=== PATIENT | male | born 1955 | race Caucasian/White ===

== ENCOUNTER → 2018-03-24 08:05 | Outpatient (CLI) | payer OTHER, SELFPAY ==
[2018-03-24 10:21] LABS: ALB/GLOB Ratio 1.2 RATIO (0.9-2.4); AST(SGOT) 40 U/L (15-37); Alanine Aminotransfer ALT/SGPT 57 U/L (16-61); Alkaline Phosphatase 63 U/L (45-117); Anion Gap 11 (5-15); BUN 18 mg/dL (7-18); BUN/Creat Ratio 19.8 RATIO (10-20); Calcium,Total 9.1 mg/dL (8.5-10.1); Chloride 107 mmol/L (98-107); Cholesterol 165 mg/dL (200); Creatinine, Serum 0.91 mg/dL (0.70-1.30); EST Glomerular Filtration Rate 89 mL/min (>60); Est Glom Filt Rate - Afr Amer 108 mL/min (>60); Globulin 3.3 g/dL (2.2-4.2); Glucose 86 mg/dL (74-106); High Density Lipoprotein 53 mg/dL; PSA,Total - Annual Screen 1.21 ng/mL (0.00-4.00); Potassium 4.3 mmol/L (3.5-5.1); Protein, Total 7.3 g/dL (6.4-8.2); Sodium Level 144 mmol/L (136-145); Triglycerides 86 mg/dL; Very Low Density Lipoprotein 17 mg/dL (5-40)
--- OUTSIDE RECORDS SUMMARY | 2018-06-25 12:53 | XMS RPT_ITS ---
:1955 Author Organization OHIP Care Team Providers Name Role Phone Blue Hopson Attending Unavailable Blue Hopson Primary Care Unavailable PROBLEMS PROBLEMS No Problem Records FoundPROCEDURES PROCEDURES No Procedure Records FoundRESULTS RESULTS COMPREHENSIVE METABOLIC Collected: 03/24/2018 Status: F Source: [facility] 8:07 AM [facility] REPOSITORY Order Comment: Order Date: 03/24/17 Order Info: [id number] - CMP Order Info: [id number] - LIPID Order Info: 2857-1 - PSA TYPE CODE TESTS RESULT OUT OF RANGE REFERENCE UNITS LAB L501.0100 74-106 mg/dL Normal GLU 86 Result Comment: Please note revised GLUCOSE reference range effective 2017. LAB L501.1000 7-18 mg/dL Normal BUN 18 LAB L501.1100 0.70-1.30 mg/dL Normal CREAT,SERUM 0.91 Result Comment: The validity of the calculated GFR AND GFRAA in patients over 70 years has not been determined. Clinical correlation is essential. LAB L501.1110 >60 mL/min Normal EST GFR 89 Result Comment: Non- GFR Calc LAB L501.1115 >60 mL/min Normal EST GFR - AA 108 Result Comment: GFR Calc LAB L501.1300 10-20 RATIO Normal BUN/CRE 19.8 LAB L501.1500 6.4-8.2 g/dL T Normal PROT 7.3 LAB L501.1800 3.2-5.0 g/dL Normal ALB 4.0 LAB L501.1950 2.2-4.2 g/dL Normal GLOB 3.3 LAB L501.2000 0.9-2.4 RATIO Normal A/G 1.2 LAB L501.2200 8.5-10.1 mg/dL CA Normal 9.1 LAB L501.4100 15-37 U/L High AST 40 LAB L501.4305 45-117 U/L Normal ALK P 63 LAB L501.4405 16-61 U/L Normal ALT 57 LAB L501.4600 0.20-1.00 mg/dL T Normal BILI 0.70 LAB L501.5300 136-145 mmol/L NA Normal 144 LAB L501.5600 3.5-5.1 mmol/L K Normal 4.3 LAB L501.5900 98-107 mmol/L CL Normal 107 LAB L501.6100 21.0-32.0 mmol/L Normal CO2 26.0 LAB L501.6200 5-15 Normal GAP 11 Performed By: #### L500.4050, L500.4100, L501.9910 #### [facility] [address] [place], [address] LIPID PROFILE Collected: 03/24/2018 Status: F Source: [facility] 8:07 AM [facility] REPOSITORY Order Comment: Order Date: 03/24/17 Order Info: [id number] - CMP Order Info: [id number] - LIPID Order Info: 2857-1 - PSA TYPE CODE TESTS RESULT OUT OF RANGE REFERENCE UNITS LAB L501.4900 200 mg/dL Normal CHOL 165 Result Comment: <200 mg/dL Desirable 200-240 mg/dL Borderline >240 mg/dL High Risk LAB L501.5000 mg/dL Normal TRIG 86 Result Comment: The drugs N-Acetylcysteine and Metamizole may falsely depress this assay. Serum Triglycerides Reference Interval Normal <150 mg/dL Borderline high 150 - 199 mg/dL High 200 - 499 mg/dL Very High > or = 500 mg/dL LAB L501.6400 mg/dL Normal HDL 53 Result Comment: The drugs N-Acetylcysteine and Metamizole may falsely depress this assay. Reference Range HDL <40 mg/dL Low HDL Cholesterol HDL >or= 60 mg/dL High HDL Cholesterol LAB L501.6500 0-130 mg/dL Normal LDL 95 LAB L501.6600 5-40 mg/dL Normal VLDL 17 Performed By: #### L500.4050, L500.4100, L501.9910 #### [facility] [address] [place], [address] PSA,TOTAL - ANNUAL Collected: 03/24/2018 Status: F Source: [facility] 8:07 AM [facility] REPOSITORY Order Comment: Order Date: 03/24/17 Order Info: [id number] - CMP Order Info: [id number] - LIPID Order Info: [id number] - PSA TYPE CODE TESTS RESULT OUT OF RANGE REFERENCE UNITS LAB L501.9910 0.00-4.00 ng/mL Normal PSA,TOT 1.21 SCREEN Result Comment: This test was performed using the TPSA assay method for the [employer] chemistry system. Values obtained with different assay methods cannot be used interchangably. When changing PSA assays in the course of monitoring a patient, additional sequential testing should be carried out to confirm baseline values. Performed By: #### L500.4050, L500.4100, L501.9910 #### [facility] [address] [place], [address] ALLERGIES ALLERGIES No Allergies Records FoundENCOUNTERS ENCOUNTERS ADMIT/DISCHARGE ACCOUNT ADMITTING ENCOUNTER LOCATION SOURCE NUMBER CLASS 03/24/2018 [id number] Ambulatory [address] ing:MFPLAB Repository PAYERS PAYERS ENCOUNTER GUARANTOR PAYER SUBSCRIBER SOURCE 03/24/2018 Evon Cummings Primary EVON Cummings Carmen [id number] Insurance:[facility] GLENNYESSERDOB: [facility] [place]: [id number] [id number] Repository [address]ym: [phone]) Date:[phone] () [id number] [place], [place] [address]QD: 03/24/2018 Secondary NOT GIVENELIAN Carmen Insurance:SELF PAY [facility] Number: Effective Repository Date:2018-03-24
== END ==
PROVIDERS: Family Provider Family Medicine; PCP Family Medicine; Visit Provider Family Medicine
DX: E78.5 Hyperlipidemia, unspecified (principal); Z12.5 Encounter for screening for malignant neoplasm of prostate
CPT/HCPCS: 36415; 80053; 80061; 84153; G0103

== ENCOUNTER → 2019-03-10 09:08 | Outpatient (CLI) | payer MEDICARE, SELFPAY ==
[2019-03-10 09:21] LABS: Lyme Ab Screen Interpretation REF LAB
[2019-03-15 20:18] LABS: Lyme Scn Total Ab w/Rflx 2.17 ISR (0.00-0.90)
[2019-03-16 10:46] LABS: Lyme IgG P18 Ab Absent (.); Lyme IgG P23 Ab Absent (.); Lyme IgG P28 Ab Absent (.); Lyme IgG P30 Ab Absent (.); Lyme IgG P39 Ab Absent (.); Lyme IgG P41 Ab Present (.); Lyme IgG P45 Ab Absent (.); Lyme IgG P58 Ab Absent (.); Lyme IgG P66 Ab Absent (.); Lyme IgG P93 Ab Absent (.); Lyme IgM P23 Ab Present (.); Lyme IgM P39 Ab Present (.); Lyme IgM P41 Ab Present (.)
[2019-03-16 10:51] LABS: Lyme IgG WB Interpretation Negative (.)
[2019-03-16 10:55] LABS: Lyme IgM WB Interpretation Positive (.)
== END ==
PROVIDERS: Family Provider Family Medicine; PCP Family Medicine; Referring Provider Dermatology; Visit Provider Dermatology
DX: A69.20 Lyme disease, unspecified (principal)
CPT/HCPCS: 36415; 86617; 86618

== ENCOUNTER → 2019-03-24 08:16 | Outpatient (CLI) | payer MEDICARE, SELFPAY ==
[2019-03-24 11:00] LABS: AST(SGOT) 47 U/L (15-37); Alanine Aminotransfer ALT/SGPT 81 U/L (16-61); Albumin, Serum 3.8 g/dL (3.2-5.0); Alkaline Phosphatase 63 U/L (45-117); Anion Gap 7 (5-15); BUN 15 mg/dL (7-18); BUN/Creat Ratio 16.8 RATIO (10-20); Chloride 106 mmol/L (98-107); Cholesterol 167 mg/dL (200); EST Glomerular Filtration Rate 90 mL/min (>60); Est Glom Filt Rate - Afr Amer 109 mL/min (>60); Globulin 3.7 g/dL (2.2-4.2); Glucose 94 mg/dL (74-106); High Density Lipoprotein 52 mg/dL; PSA,Total - Annual Screen 0.86 ng/mL (0.00-4.00); Potassium 3.8 mmol/L (3.5-5.1); Protein, Total 7.5 g/dL (6.4-8.2); Sodium Level 141 mmol/L (136-145); Triglycerides 108 mg/dL; Very Low Density Lipoprotein 22 mg/dL (5-40)
== END ==
PROVIDERS: Family Provider Family Medicine; PCP Family Medicine; Referring Provider Family Medicine; Visit Provider Family Medicine
DX: E78.00 Pure hypercholesterolemia, unspecified (principal); I10 Essential (primary) hypertension; Z12.5 Encounter for screening for malignant neoplasm of prostate
CPT/HCPCS: 36415; 80053; 80061; 84153; G0103

== ENCOUNTER → 2019-04-12 09:14 | Outpatient (CLI) | payer MEDICARE, SELFPAY ==
--- NOTE | 2019-04-12 09:18 | US_ITS ---
PROCEDURES: ULTRASOUND AORTA REASON FOR EXAM: Male, 63 years old. AAA SCREENING TECHNIQUE: Ultrasound evaluation of the aorta was performed with real-time and static james-scale imaging. COMPARISON: None. FINDINGS: There is atherosclerotic plaque formation of the abdominal aorta. Aorta measures: Proximal 2.0 cm. Middle 1.8 cm. Distal 1.6 cm. Aorta measure transversely: Proximal 2.0 cm. Middle 1.4 cm. Distal 2.0 cm. Right iliac artery measures: 1.0 cm. Right iliac artery measure transversely: 1.2 cm. Left iliac artery measures: 1.0 cm. Left iliac artery measure transversely: 1.2 cm. There is no demonstrated aneurysm.. US/Aorta IMPRESSION: Atherosclerotic disease of aorta with no aneurysmal dilatation or significant stenosis. Electronically Signed: Lyly Cardona MD at 1:52 EST , Service support ,
== END ==
PROVIDERS: Family Provider Family Medicine; PCP Family Medicine; Referring Provider Family Medicine; Visit Provider Family Medicine
DX: Z13.6 Encounter for screening for cardiovascular disorders (principal)
CPT/HCPCS: 76775

== ENCOUNTER → 2020-02-02 07:47 | Outpatient (CLI) | payer MEDICARE, SELFPAY ==
--- NOTE | 2020-02-02 07:52 | CT_ITS ---
STUDY: CT SCAN OF LOWER EXTREMITY LEFT REASON FOR EXAM: Male, 64 years old. Left knee varus deformity-CRISTIAN PROTOCOL RADIATION DOSAGE (If Supplied By Facility): CTDIvol = ( 18.14 ) mGy, DLP = ( 1445.60 ) mGycm. Individualized dose optimization techniques were used for this CT.? TECHNIQUE: Multiple axial tomographic images of the left hip joint, left knee joint and left ankle joints were obtained. Coronal and sagittal reconstruction was obtained as well. COMPARISON: None. FINDINGS: The left hip joint shows a mild degree of joint space narrowing. No evidence of fracture or dislocation. There is a marked degree of joint space narrowing involving the medial compartment of the knee joint. There is evidence of a virus deformity as well as a tiny spur along the lateral and anterior aspect of the distal medial femoral condyle. Minimal degenerative changes of the patellofemoral joint. Small joint effusion. Imaging of the ankle joints shows a mild degree of the degenerative changes of the tibial talar joint as well as the distal tibial fibular joint. CT/Extremity Lower without Contra IMPRESSION: Moderate degree of both osteoarthritis and joint space narrowing involving the medial compartment of the knee joint. Small joint effusion. Electronically Signed: Carlos Kincaid, at 15:30 EDT , Service support ,
== END ==
PROVIDERS: PCP Family Medicine; Referring Provider Orthopaedic Surgery; Visit Provider Orthopaedic Surgery
DX: M17.12 Unilateral primary osteoarthritis, left knee (principal)
CPT/HCPCS: 73700

== ENCOUNTER 2020-02-21 05:25 | Day surgery (SDC) | payer MEDICARE, SELFPAY ==
--- NOTE | 2020-02-14 08:51 | EKG12_ITS ---
Test Reason : PREOP Blood Pressure : / mmHG Vent. Rate : 082 BPM Atrial Rate : 082 BPM P-R Int : 168 ms QRS Dur : 100 ms QT Int : 364 ms P-R-T Axes : 060 -27 041 degrees QTc Int : 425 ms Normal sinus rhythm Septal infarct , age undetermined Abnormal ECG Confirmed by MUSHTAQ CARTAGENA, SAI ([id number]), content editor BEEVRLY MCRAE ([id number]) on 02/15/2020 10:56:40 AM Referred By: Basilio Michael Confirmed By:SAI LANDIN MD
[2020-02-14 09:36] LABS: Magnesium 2.1 mg/dL (1.6-2.6)
[2020-02-21] VITALS (9 sets, daily range): BP systolic 90–173; BP diastolic 39–96; PULSE 59–75; RESP 14–16; TEMP 36.3–37.1; O2SAT 97–100; BMI 27.7
--- NOTE | 2020-02-21 | KNEE_PTH ---
PATIENT: EVON ROTHMAN LOC: [facility] [place] U#:[id number] AGE/SX: 64/M ROOM: RE02/21/[address]: Dr. Basilio Michael DO : 1955 BED: DIS: 02/21/2020 SPEC #: [id number] RECD: 02/21/20 10:37 STATUS: MIRIAM REQ #: [id number] SO: 02/21/20 00:[address]: Basilio Michael DEPT: SURGICAL PATHOLOGY RECD BY: Karena Burroughs ENTERED: 02/21/20 11:46 SP TYPE: TOTAL KNEE OTHR DR: Dr. Blue Hopson MD Tissues: Knee, NOS Procedures: Decalcification bone/plaque Surgery Specimen Level IV HEADER OPERATION: ERAS, total knee replacement robotic arm assist PRE-OP DIAGNOSIS: Left knee osteoarthritis TISSUE SUBMITTED: Left knee bone and soft tissue MICROSCOPIC DIAGNOSIS Bone and soft tissue of left knee, total knee resection: Severe degenerative joint disease. AM:madeleine 02/24/20 MICROSCOPIC DESCRIPTION Slides are reviewed. GROSS DESCRIPTION Received is one container designated bone and soft tissue left knee. The specimen consists of multiple fragments of victoria-yellow bone measuring in aggregate 13 x 11 x 3 cm. No soft tissue is identified. A number of bony fragments contain articular surfaces consistent with tibial plateau and femoral condyle and displaying prominent osteophyte formation, eburnation, and bone erosion. Scientific Software Engineer sections are submitted in one cassette after decalcification. / SJ:madeleine 02/21/20 TC:5 CPT: 29964, 95498
[2020-02-21] MEDS: Acetaminophen 500 MG Tablet 1000 MG PO (06:05)
[2020-02-21] MEDS: Gabapentin 600 MG Tablet PO (06:06)
[2020-02-21] MEDS: Lactated Ringers 1,000 ML 100 ML IV (06:08)
[2020-02-21 06:36] LABS: Bedside Glucose 101 mg/dL (70-110)
[2020-02-21] MEDS: Cefazolin 2 GM in 0.9% Normal Saline 100 ML IV (07:25)
[2020-02-21] MEDS: Lactated Ringers 1,000 ML 125 ML IV ×2 (08:30→09:21)
--- NOTE | 2020-02-21 09:43 | OP.PCM_ITS ---
Report of Operation Date of Procedure: 02/21/20 Pre-Operative Diagnosis: OA left knee Post-Operative Diagnosis: same Surgery/Procedure Performed:: Left TKR coin machine supervisor: Ernie Styles Type of Anesthesia:: Spinal Anesthesiologist: Deng Page - Admjanak VTE Documentation VTE Present on Admission: No VTE Mechan Device Prophylaxis: SCD's, Thigh High YESICA Hose VTE Pharm Prophylaxis ordered?: Yes
--- NOTE | 2020-02-21 09:44 | RAD_ITS ---
STUDY: X-RAY - LEFT KNEE REASON FOR EXAM: Male, 64 years old. POST OP TOTAL KNEE TECHNIQUE: 2 view(s) of the knee. COMPARISON: None. FINDINGS: Normal visualized distal femur. Normal visualized proximal tibia and fibula. Normal proximal tibiofibular articulation. The patient is status post total knee replacement. There is good alignment. Postoperative soft tissue changes. RAD/Knee 1 or 2 Views IMPRESSION: Status post total knee replacement. There is good alignment. Postoperative soft tissue changes. Electronically Signed: Carlos Kincaid, at 10:15 EST , Service support ,
[2020-02-21 10:23] LABS: Hematocrit 41.8 % (40-54); Hemoglobin 13.5 g/dL (13.0-16.5); Mean Corp Hgb Conc 32.3 g/dL (32-36); Mean Corpuscular Hgb 33.3 pg (27.0-32.0); Platelet Count 253 K/mm3 (150-450); RBC Distribution Width CV 12.4 % (11.6-14.6); RBC Distribution Width SD 47.6 fl (35.1-43.9); Red Blood Count 4.06 M/mm3 (4.6-6.2); White Blood Count 6.5 K/mm3 (4.4-11.0)
[2020-02-21 10:37] LABS: Anion Gap 6 (5-15); BUN 17 mg/dL (7-18); BUN/Creat Ratio 19.7 RATIO (10-20); Calcium,Total 8.4 mg/dL (8.5-10.1); Chloride 107 mmol/L (98-107); Creatinine, Serum 0.86 mg/dL (0.70-1.30); EST Glomerular Filtration Rate 94 mL/min (>60); Est Glom Filt Rate - Afr Amer 114 mL/min (>60); Estimated Creatinine Clearance 98.24 ml/min; Glucose 109 mg/dL (74-106); Potassium 4.1 mmol/L (3.5-5.1); Sodium Level 140 mmol/L (136-145)
[2020-02-21] MEDS: Cefazolin 1 GM/50 ML BAG IV (12:17)
== END 2020-02-21 13:33 | disposition home or self-care (01) ==
LOC: SDC 05:26 → AC 05:26
PROVIDERS: Anesthesiology; PCP Family Medicine; Referring Provider Orthopaedic Surgery; Visit Provider Orthopaedic Surgery
PROC: 0SRD0JZ Replacement of Left Knee Joint with Synthetic Substitute, Open Approach (ICD-10-PCS; CPT 27447; principal; 2020-02-21 07:00)
DX: M17.12 Unilateral primary osteoarthritis, left knee (principal); I10 Essential (primary) hypertension; E78.00 Pure hypercholesterolemia, unspecified; Z85.828 Personal history of other malignant neoplasm of skin; Z79.899 Other long term (current) drug therapy; Z87.891 Personal history of nicotine dependence
CPT/HCPCS: 01402; 27447; S2900; 36415; 73560; 80048; 82962; 83735; 85027; 87081; 87426; 88305; 88311; 93005; 97161; C1776; C9803; J7120; A4216; J2405

== ENCOUNTER → 2020-03-29 07:57 | Outpatient (CLI) | payer MEDICARE, SELFPAY ==
[2020-02-21 06:00] VITALS: BMI 27.7
[2020-03-29 10:45] LABS: Hematocrit 43.2 % (40-54); Mean Corp Hgb Conc 32.4 g/dL (32-36); Mean Corpuscular Hgb 32.3 pg (27.0-32.0); Mean Corpuscular Volume 99.8 fL (80-94); Mean Platelet Vol. 9.8 fl (6.2-12.0); Platelet Count 320 K/mm3 (150-450); RBC Distribution Width CV 12.4 % (11.6-14.6); RBC Distribution Width SD 45.9 fl (35.1-43.9); Red Blood Count 4.33 M/mm3 (4.6-6.2); White Blood Count 5.1 K/mm3 (4.4-11.0)
[2020-03-29 11:14] LABS: ALB/GLOB Ratio 0.9 RATIO (0.9-2.4); AST(SGOT) 25 U/L (15-37); Alanine Aminotransfer ALT/SGPT 52 U/L (16-61); Albumin, Serum 3.7 g/dL (3.2-5.0); Alkaline Phosphatase 90 U/L (45-117); Anion Gap 7 (5-15); BUN 17 mg/dL (7-18); BUN/Creat Ratio 19.1 RATIO (10-20); Calcium,Total 9.2 mg/dL (8.5-10.1); Chloride 106 mmol/L (98-107); Cholesterol 165 mg/dL (200); Creatinine, Serum 0.89 mg/dL (0.70-1.30); EST Glomerular Filtration Rate 91 mL/min (>60); Est Glom Filt Rate - Afr Amer 110 mL/min (>60); Glucose 86 mg/dL (74-106); High Density Lipoprotein 52 mg/dL; PSA,Total - Annual Screen 1.22 ng/mL (0.00-4.00); Potassium 3.8 mmol/L (3.5-5.1); Protein, Total 7.7 g/dL (6.4-8.2); Sodium Level 140 mmol/L (136-145); Triglycerides 89 mg/dL; Very Low Density Lipoprotein 18 mg/dL (5-40)
== END ==
PROVIDERS: PCP Family Medicine; Referring Provider Family Medicine; Visit Provider Family Medicine
DX: Z00.00 Encounter for general adult medical examination without abnormal findings (principal); E78.00 Pure hypercholesterolemia, unspecified; Z12.5 Encounter for screening for malignant neoplasm of prostate
CPT/HCPCS: 36415; 80053; 80061; 84153; 85027; G0103

== ENCOUNTER → 2021-04-03 08:11 | Outpatient (CLI) | payer MEDICARE, SELFPAY ==
[2021-04-03 09:46] LABS: Absolute Lymphocyte Count 1.52 X10^3/uL (0.83-4.51); Absolute Neutrophil Count 2.8 X10^3/uL (2.0-7.7); Basophil# 0.02 X10^3/uL; Basophil% 0.4 % (0-1); Eosinophil# 0.07 X10^3/uL; Eosinophils% 1.4 % (0-5); Hematocrit 45.3 % (40-54); Hemoglobin 15.6 g/dL (13.0-16.5); Lymphocyte # 1.52 X10^3/ul (0.83-4.51); Lymphocyte % 30.2 % (19-41); Mean Corp Hgb Conc 34.4 g/dL (32-36); Mean Corpuscular Hgb 33.1 pg (27.0-32.0); Mean Corpuscular Volume 96.2 fL (80-94); Mean Platelet Vol. 9.9 fl (6.2-12.0); Monocyte# 0.59 X10^3/uL; Monocyte% 11.7 % (0-10); NRBC Flagged by Analyzer 0 % (0-5); Neutrophil # 2.82 X10^3/uL (2.7-7.7); Neutrophil % 56.1 % (47-70); Platelet Count 276 K/mm3 (150-450); RBC Distribution Width SD 42.4 fl (35.1-43.9); Red Blood Count 4.71 M/mm3 (4.6-6.2)
[2021-04-03 10:21] LABS: AST(SGOT) 33 U/L (15-37); Alanine Aminotransfer ALT/SGPT 58 U/L (16-61); Albumin, Serum 3.9 g/dL (3.2-5.0); Alkaline Phosphatase 73 U/L (45-117); Anion Gap 9 (5-15); BUN 19 mg/dL (7-18); BUN/Creat Ratio 21.9 RATIO (10-20); Calcium,Total 9.4 mg/dL (8.5-10.1); Chloride 104 mmol/L (98-107); Cholesterol 163 mg/dL (200); Creatinine, Serum 0.87 mg/dL (0.70-1.30); EST Glomerular Filtration Rate 93 mL/min (>60); Est Glom Filt Rate - Afr Amer 113 mL/min (>60); Globulin 3.9 g/dL (2.2-4.2); Glucose 93 mg/dL (74-106); High Density Lipoprotein 53 mg/dL; PSA,Total - Annual Screen 1.03 ng/mL (0.00-4.00); Potassium 3.7 mmol/L (3.5-5.1); Protein, Total 7.8 g/dL (6.4-8.2); Sodium Level 138 mmol/L (136-145); Triglycerides 97 mg/dL; Very Low Density Lipoprotein 19 mg/dL (5-40)
== END ==
LOC: MFPLAB 08:12
PROVIDERS: PCP Family Medicine; Visit Provider Family Medicine
DX: I10 Essential (primary) hypertension (principal); Z12.5 Encounter for screening for malignant neoplasm of prostate
CPT/HCPCS: 36415; 80053; 80061; 84153; 85025; G0103

== ENCOUNTER 2022-03-06 08:09 | Outpatient (CLI) | payer MEDICARE, SELFPAY ==
[2022-03-06 10:21] LABS: Absolute Lymphocyte Count 1.26 X10^3/uL (0.83-4.51); Absolute Neutrophil Count 3.3 X10^3/uL (2.0-7.7); Basophil# 0.02 X10^3/uL; Basophil% 0.4 % (0-1); Eosinophil# 0.08 X10^3/uL; Eosinophils% 1.5 % (0-5); Hematocrit 45.6 % (40-54); Hemoglobin 15.3 g/dL (13.0-16.5); Lymphocyte # 1.26 X10^3/ul (0.83-4.51); Lymphocyte % 23.8 % (19-41); Mean Corp Hgb Conc 33.6 g/dL (32-36); Mean Corpuscular Hgb 33.4 pg (27.0-32.0); Mean Corpuscular Volume 99.6 fL (80-94); Mean Platelet Vol. 9.7 fl (6.2-12.0); Monocyte# 0.62 X10^3/uL; Monocyte% 11.7 % (0-10); NRBC Flagged by Analyzer 0 % (0-5); Neutrophil % 62.4 % (47-70); Platelet Count 279 K/mm3 (150-450); RBC Distribution Width CV 12.4 % (11.6-14.6); RBC Distribution Width SD 45.8 fl (35.1-43.9); Red Blood Count 4.58 M/mm3 (4.6-6.2); White Blood Count 5.3 K/mm3 (4.4-11.0)
[2022-03-06 10:36] LABS: ALB/GLOB Ratio 1.2 RATIO (0.9-2.4); AST(SGOT) 45 U/L (15-37); Alanine Aminotransfer ALT/SGPT 67 U/L (16-61); Alkaline Phosphatase 63 U/L (45-117); Anion Gap 7 (5-15); BUN 17 mg/dL (7-18); BUN/Creat Ratio 20.1 RATIO (10-20); Calcium,Total 9.2 mg/dL (8.5-10.1); Chloride 106 mmol/L (98-107); Cholesterol 191 mg/dL (200); Creatinine, Serum 0.84 mg/dL (0.70-1.30); EST Glomerular Filtration Rate 96 mL/min (>60); Est Glom Filt Rate - Afr Amer 116 mL/min (>60); Globulin 3.2 g/dL (2.2-4.2); Glucose 92 mg/dL (74-106); High Density Lipoprotein 72 mg/dL; Potassium 4.3 mmol/L (3.5-5.1); Protein, Total 7.2 g/dL (6.4-8.2); Sodium Level 141 mmol/L (136-145); Triglycerides 66 mg/dL; Very Low Density Lipoprotein 13 mg/dL (5-40)
== END 2022-03-06 23:59 | disposition home or self-care (01) ==
LOC: MFPLAB 08:12
PROVIDERS: PCP Family Medicine; Referring Provider Family Medicine; Visit Provider Family Medicine
DX: Z12.5 Encounter for screening for malignant neoplasm of prostate (principal); E78.00 Pure hypercholesterolemia, unspecified; I10 Essential (primary) hypertension
CPT/HCPCS: 36415; 80053; 80061; 85025

== ENCOUNTER → 2023-02-18 | Outpatient (CLI) | payer MEDICARE, SELFPAY ==
[2023-02-18 10:08] LABS: Absolute Lymphocyte Count 1.24 X10^3/uL (0.83-4.51); Absolute Neutrophil Count 3.1 X10^3/uL (2.0-7.7); Basophil# 0.02 X10^3/uL; Basophil% 0.4 % (0-1); Eosinophil# 0.07 X10^3/uL; Eosinophils% 1.4 % (0-5); Hematocrit 47.1 % (40-54); Hemoglobin 15.4 g/dL (13.0-16.5); Lymphocyte # 1.24 X10^3/ul (0.83-4.51); Lymphocyte % 24.7 % (19-41); Mean Corp Hgb Conc 32.7 g/dL (32-36); Mean Corpuscular Hgb 32.6 pg (27.0-32.0); Mean Corpuscular Volume 99.6 fL (80-94); Mean Platelet Vol. 10.2 fl (6.2-12.0); Monocyte# 0.57 X10^3/uL; Monocyte% 11.3 % (0-10); NRBC Flagged by Analyzer 0 % (0-5); Neutrophil # 3.12 X10^3/uL (2.7-7.7); Platelet Count 274 K/mm3 (150-450); RBC Distribution Width CV 12.7 % (11.6-14.6); RBC Distribution Width SD 46.8 fl (35.1-43.9); Red Blood Count 4.73 M/mm3 (4.6-6.2)
[2023-02-18 10:40] LABS: AST(SGOT) 50 U/L (15-37); Alanine Aminotransfer ALT/SGPT 59 U/L (16-61); Albumin, Serum 3.9 g/dL (3.2-5.0); Alkaline Phosphatase 64 U/L (45-117); Anion Gap 8 (5-15); BUN 19 mg/dL (7-18); BUN/Creat Ratio 21.6 RATIO (10-20); Chloride 106 mmol/L (98-107); Cholesterol 172 mg/dL (200); Creatinine, Serum 0.88 mg/dL (0.70-1.30); EST Glomerular Filtration Rate 91 mL/min (>60); Est Glom Filt Rate - Afr Amer 110 mL/min (>60); Globulin 3.8 g/dL (2.2-4.2); Glucose 101 mg/dL (74-106); High Density Lipoprotein 65 mg/dL; PSA,Total - Annual Screen 1.29 ng/mL (0.00-4.00); Protein, Total 7.7 g/dL (6.4-8.2); Sodium Level 139 mmol/L (136-145); Triglycerides 68 mg/dL; Very Low Density Lipoprotein 14 mg/dL (5-40)
== END | disposition home or self-care (01) ==
LOC: MFPLAB 08:07
PROVIDERS: PCP Family Medicine; Visit Provider Family Medicine
DX: I10 Essential (primary) hypertension (principal); E78.00 Pure hypercholesterolemia, unspecified; Z12.5 Encounter for screening for malignant neoplasm of prostate
CPT/HCPCS: 36415; 80053; 80061; 84153; 85025; G0103

== ENCOUNTER 2023-08-06 07:10 | Day surgery (SDC) | payer MEDICARE, SELFPAY ==
--- NOTE | 2023-08-06 | COLBX_PTH ---
PATIENT: EVON ROTHMAN LOC: [facility] U#:[id number] AGE/SX: 68/M ROOM: RE08/06/[address]: Dr. Diomedes Day DO : 1955 BED: DIS: 08/06/2023 SPEC #: [id number] RECD: 08/06/23 12:11 STATUS: MIRIAM REGonzalo #: [id number] SO: 08/06/23 00:[address]: Diomedes Day DEPT: SURGICAL PATHOLOGY RECD BY: Tre Ash ENTERED: 08/06/23 12:11 SP TYPE: COLON BX OTHR DR: Dr. Blue Hopson MD Tissues: A - Sigmoid colon biopsy B - Rectum, NOS Procedures: Surgery Specimen Level IV HEADER OPERATION: Colonoscopy biopsy PRE-OP DIAGNOSIS: Encounter for screening for malignant neoplasm of colon TISSUE SUBMITTED: A- Sigmoid colon polyp biopsy, B- Rectum polyp biopsy MICROSCOPIC DIAGNOSIS A. Sigmoid colon polyp, biopsy: Fragments of hyperplastic polyp. B. Rectum polyp, biopsy: Fragments of hyperplastic polyp. / 08/07/23 MICROSCOPIC DESCRIPTION Slides are reviewed. GROSS DESCRIPTION A. Received in fixative is one container labeled with the patient's name and designated Sigmoid colon polyp biopsy. The specimen consists off two irregular fragments of light victoria soft tissue that in aggregate measure 0.6 x 0.5 x 0.1 cm. The specimen is totally submitted in one cassette. B. Received in fixative is one container labeled with the patient's name and designated Rectum polyp. The specimen consists of two irregular fragments of light victroia soft tissue that in aggregate measure 0.5 x 0.4 x 0.1 cm. The specimen is totally submitted in one cassette. / 08/06/23 TC:3 [facility]:[id number]
[2023-08-06 07:30] VITALS: BP 158/86; PULSE 68; RESP 16; TEMP 37; O2SAT 100; BMI 26.9
[2023-08-06] MEDS: Lactated Ringers 1,000 ML 15 ML IV (07:39)
--- NOTE | 2023-08-06 08:35 | HP.PCM_ITS ---
HPI - General General Date of Admission: 08/06/23 Date of Service: 08/06/23 Chief Complaint: Screening colonoscopy HPI Narrative EVON ROTHMAN, is a 68 M who presents today for screening colonoscopy. He had his screening colonoscopy 10 years ago and that was normal. He has a past medical history of mild hypercholesterolemia and hypertension. Overall he is in very good health and has no complaints at this time. REPLACED BY [facility] Medical History (Updated 08/04/23 @ 09:25 by Lc Diaz) Alcohol use Former smoker Heartburn High cholesterol HTN (hypertension) Home Medications amlodipine 5 mg-benazepril 10 mg capsule 1 ea PO DAILY 02/07/20 [History Last Taken 08/06/23 06:15] atorvastatin 10 mg tablet 10 mg PO QHS 02/07/20 [History Last Taken Unknown] lactobacillus combination no.4 3 billion cell capsule (Probiotic) 3,000 mmu cells PO DAILY 03/20/23 [History Last Taken Unknown] citalopram 10 mg tablet 10 mg PO DAILY 08/04/23 [History Last Taken Unknown] sildenafil (pulm.hypertension) 20 mg tablet 20 - 40 mg PO Q24H 08/04/23 [History Last Taken Unknown] Allergy/AdvReac Type Severity Reaction Status Date / Time Sulfa (Sulfonamide AdvReac PT UNSURE Verified 08/06/23 07:29 Antibiotics) OF REACTION Surgical History Hx of colonoscopy Hx of left knee surgery Social History (Updated 03/20/23 @ 16:07 by Aiyana Castaneda) current occupational status: retired Smoking Status: Former smoker ROS Review of Systems ROS Unobtainable: other Constitutional Constitutional: Denies fatigue, fever(s), poor appetite, weight gain or weight loss ENT HEENT: Denies mouth lesions Cardiovascular Cardiovascular: Denies abdominal bloating, abdominal edema or abdominal pain Respiratory/Chest Respiratory/Chest: Denies change in mental status, change in phlegm color, chest congestion or chest tightness Gastrointestinal Gastrointestinal: Denies belching, bloating, change in bowel habits, change in stool character, chewing difficulty, coffee ground emesis, constipation, cramping, diarrhea, dyspepsia, dysphagia, early satiety, excessive flatus, fecal incontinence, heartburn, hematemesis, hematochezia, hemorrhoids, loose stools, melena, nausea, odynophagia, rectal bleeding, tenesmus, vomiting or weight changes Genitourinary Genitourinary: Denies abdominal discomfort, burning urination or itching Musculoskeletal Musculoskeletal: Reports as per HPI; Denies muscle weakness or myalgias Integumentary Integumentary: Denies jaundice Neurologic Neurologic: Denies lack of coordination or weakness Psychiatric Psychiatric: Denies confusion, depression, memory loss, mood swings, paranoia or suicidal ideation Endocrine Endocrinology: Denies systems reviewed and no addt'l complaints, except as documented Hematologic/Lymphatic Hematologic/Lymphatic: Denies anemia, easy bleeding, easy bruising or lymphadenopathy Allergic/Immunologic Allergic/Immunologic: Denies systems reviewed and no addt'l complaints, except as documented Vital Signs Vital Signs Vital Signs: 08/06/23 07:30 08/06/23 07:30 Temperature 98.6 F Temperature Source Temporal Pulse Rate 68 Respiratory Rate 16 Respiratory Pattern Normal Blood Pressure 158/86 H Blood Pressure Mean 110 Blood Pressure Source Monitor Blood Pressure Position Supine Blood Pressure Location Left Arm Pulse Ox 100 Oxygen Delivery Method Room Air Weight Weight: 210 lb Body Mass Index (BMI) 26.9 Physical Exam Const alert General Appearance: cooperative Orientation / Consciousness: oriented to person HEENT hearing grossly normal bilaterally Head and Scalp: normal to inspection Face and Sinus: face symmetric Nose: external nose normal Mouth: oral and palatal mucosa normal Eyes conjunctivae normal General Eye: normal appearance of both eyes Neck full ROM General: normal visual inspection Lymph Lymphatic: no lymphadenopathy noted Chest inspection of chest normal and palpation of chest normal Chest: symmetrical chest wall rise Resp normal respiratory effort Effort and Inspection: able to speak in complete sentences Cardio regular rate GI non-distended Percussion: normal to percussion Rectal Exam: deferred Neuro Speech: speech normal Gait (Neuro): normal gait Assessment & Plan Assessment/Plan (1) Encounter for screening for malignant neoplasm of colon: PLAN: He was explained alternatives, risk, benefits including not withstanding bleeding, infection, sepsis, perforation, need for emergent surgery and . He will have an ASA of 3.
[2023-08-06 09:10] VITALS: BP 108/79; BP 158/86; PULSE 70; RESP 18; TEMP 36.8; O2SAT 96
--- NOTE | 2023-08-06 09:10 | OP.COLON_ITS ---
Patient Name: Romero Stubbs Procedure Date: 08/06/2023 8:37 AM Date of : 1955 Age: 68 Procedure: Colonoscopy Indications: Screening for colorectal malignant neoplasm Providers: Diomedes Day DO Referring MD: Flaquito Hopson Medicines: Monitored Anesthesia Care Patient Profile: This is a 68 year old male. Refer to note in patient chart for documentation of history and physical. Last Colonoscopy: 10 years ago. Complications: No immediate complications. Procedure: Pre-Anesthesia Assessment: - Prior to the procedure, a History and Physical was performed, and patient medications and allergies were reviewed. The patient is competent. The risks and benefits of the procedure and the sedation options and risks were discussed with the patient. All questions were answered and informed consent was obtained. Patient identification and proposed procedure were verified by the physician in the pre-procedure area. Mental Status Examination: alert and oriented. Airway Examination: normal oropharyngeal airway and neck mobility. Respiratory Examination: clear to auscultation. CV Examination: normal. ASA Grade Assessment: II - A patient with mild systemic disease. After reviewing the risks and benefits, the patient was deemed in satisfactory condition to undergo the procedure. The anesthesia plan was to use monitored anesthesia care (MAC). Immediately prior to administration of medications, the patient was re-assessed for adequacy to receive sedatives. The heart rate, respiratory rate, oxygen saturations, blood pressure, adequacy of pulmonary ventilation, and response to care were monitored throughout the procedure. The physical status of the patient was re-assessed after the procedure. After I obtained informed consent, the scope was passed under direct vision. Throughout the procedure, the patient's blood pressure, pulse, and oxygen saturations were monitored continuously. The Colonoscope was introduced through the anus and advanced to the cecum, identified by appendiceal orifice and ileocecal valve. The colonoscopy was performed without difficulty. The patient tolerated the procedure well. The quality of the bowel preparation was adequate. The ileocecal valve, appendiceal orifice, and rectum were photographed. Scope In: 8:50:24 AM Scope Withdrawal Time 0 hours 10 minutes 8 seconds Scope Out: 9:01:51 AM Total Procedure Duration Time 0 hours 11 minutes 27 seconds Findings: The perianal and digital rectal examinations were normal. Multiple medium-mouthed diverticula were found in the recto-sigmoid colon and sigmoid colon. Three sessile polyps were found in the rectum and sigmoid colon. The polyps were 1 to 2 mm in size. These polyps were removed with a jumbo cold forceps. Resection and retrieval were complete. Verification of patient identification for the specimen was done. Estimated blood loss was minimal. The exam was otherwise without abnormality on direct and retroflexion views. Impression: - Diverticulosis in the recto-sigmoid colon and in the sigmoid colon. - Three 1 to 2 mm polyps in the rectum and in the sigmoid colon, removed with a jumbo cold forceps. Resected and retrieved. - The examination was otherwise normal on direct and retroflexion views. Recommendation: - Discharge patient to home. - Resume previous diet. - Continue present medications. - Await pathology results. - Repeat colonoscopy in 5 years for surveillance. Procedure Code(s): --- Professional --- 14710, Colonoscopy, flexible; with biopsy, single or multiple CPT copyright 2021 [employer] [place] [employer]. All rights reserved. The codes documented in this report are preliminary and upon label coder review may be revised to meet current compliance requirements. Diomedes Day DO 08/06/2023 9:09:40 AM This report has been signed electronically. Number of Addenda: 0 Note Initiated On: 08/06/2023 8:37 AM
--- NOTE | 2023-08-06 09:10 | OP.CCLET_ITS ---
08/06/2023 Flaquito Hopson [address] [place] [address] Re : Colonoscopy procedure for Romero Stubbs Dear Dr. Hopson This procedure was performed on Sunday, August 06, 2023. My impressions and recommendations are as follows: Impressions : - Diverticulosis in the recto-sigmoid colon and in the sigmoid colon. - Three 1 to 2 mm polyps in the rectum and in the sigmoid colon, removed with a jumbo cold forceps. Resected and retrieved. - The examination was otherwise normal on direct and retroflexion views. Recommendations : - Discharge patient to home. - Resume previous diet. - Continue present medications. - Await pathology results. - Repeat colonoscopy in 5 years for surveillance. My findings are described in the full procedure note, which is enclosed. If I can be of further assistance, please feel free to contact me at . Sincerely, Diomedes Day, 08/06/2023 9:09:40 AM This report has been signed electronically.
[2023-08-06 09:15] VITALS: BP 122/77; BP 158/86; PULSE 59; RESP 18; O2SAT 98
[2023-08-06 09:20] VITALS: BP 116/78; BP 158/86; PULSE 54; RESP 18; TEMP 36.8; O2SAT 97
[2023-08-06 09:33] VITALS: BP 158/86
== END 2023-08-06 09:38 | disposition home or self-care (01) ==
LOC: EN 07:10 → AC 07:11
PROVIDERS: PCP Family Medicine; Referring Provider Family Medicine; Visit Provider Internal Medicine Gastroenterology
PROC: 0DJD8ZZ Inspection of Lower Intestinal Tract, Via Natural or Artificial Opening Endoscopic (ICD-10-PCS; CPT 45378; principal; 2023-08-06 08:10)
DX: Z12.11 Encounter for screening for malignant neoplasm of colon (principal); K57.30 Diverticulosis of large intestine without perforation or abscess without bleeding; I10 Essential (primary) hypertension; K62.1 Rectal polyp; Z90.49 Acquired absence of other specified parts of digestive tract; Z87.891 Personal history of nicotine dependence; E78.00 Pure hypercholesterolemia, unspecified; K63.5 Polyp of colon
CPT/HCPCS: 45380; 88305; J7120

== ENCOUNTER → 2024-02-25 | Outpatient (CLI) | payer MEDICARE, SELFPAY ==
[2024-02-25 10:21] LABS: Absolute Lymphocyte Count 1.41 X10^3/uL (0.83-4.51); Absolute Neutrophil Count 3.4 X10^3/uL (2.0-7.7); Basophil# 0.03 X10^3/uL; Basophil% 0.5 % (0-1); Eosinophil# 0.06 X10^3/uL; Eosinophils% 1.1 % (0-5); Hematocrit 45.9 % (40-54); Hemoglobin 15.2 g/dL (13.0-16.5); Lymphocyte # 1.41 X10^3/ul (0.83-4.51); Lymphocyte % 25.8 % (19-41); Mean Corp Hgb Conc 33.1 g/dL (32-36); Mean Corpuscular Hgb 32.4 pg (27.0-32.0); Mean Corpuscular Volume 97.9 fL (80-94); Mean Platelet Vol. 10.2 fl (6.2-12.0); Monocyte# 0.59 X10^3/uL; Monocyte% 10.8 % (0-10); NRBC Flagged by Analyzer 0 % (0-5); Neutrophil # 3.36 X10^3/uL (2.7-7.7); Neutrophil % 61.6 % (47-70); Platelet Count 271 K/mm3 (150-450); RBC Distribution Width CV 12.5 % (11.6-14.6); RBC Distribution Width SD 44.8 fl (35.1-43.9); Red Blood Count 4.69 M/mm3 (4.6-6.2); White Blood Count 5.5 K/mm3 (4.4-11.0)
[2024-02-25 11:02] LABS: ALB/GLOB Ratio 0.9 RATIO (0.9-2.4); AST(SGOT) 38 U/L (15-37); Alanine Aminotransfer ALT/SGPT 55 U/L (16-61); Albumin, Serum 3.7 g/dL (3.2-5.0); Alkaline Phosphatase 63 U/L (45-117); Anion Gap 6 (5-15); BUN 17 mg/dL (7-18); BUN/Creat Ratio 20.2 RATIO (10-20); Calcium,Total 9.4 mg/dL (8.5-10.1); Chloride 107 mmol/L (98-107); Cholesterol 172 mg/dL (200); Creatinine, Serum 0.84 mg/dL (0.70-1.30); EST Glomerular Filtration Rate 96 mL/min (>60); Est Glom Filt Rate - Afr Amer 116 mL/min (>60); Globulin 3.9 g/dL (2.2-4.2); Glucose 96 mg/dL (74-106); High Density Lipoprotein 63 mg/dL; PSA,Total - Annual Screen 1.33 ng/mL (0.00-4.00); Potassium 3.8 mmol/L (3.5-5.1); Protein, Total 7.6 g/dL (6.4-8.2); Sodium Level 138 mmol/L (136-145); Triglycerides 86 mg/dL; Very Low Density Lipoprotein 17 mg/dL (5-40)
== END | disposition home or self-care (01) ==
PROVIDERS: PCP Family Medicine; Visit Provider Family Medicine
DX: Z12.5 Encounter for screening for malignant neoplasm of prostate (principal); I10 Essential (primary) hypertension; E78.00 Pure hypercholesterolemia, unspecified
CPT/HCPCS: 36415; 80053; 80061; 84153; 85025; G0103

== ENCOUNTER → 2025-02-28 | Outpatient (CLI) | payer MEDICARE, SELFPAY ==
[2025-02-28 10:46] LABS: Hematocrit 45.9 % (40-54); Hemoglobin 15.5 g/dL (13.0-16.5); Immature Granulocytes Count 0.020 X10^3/uL (0.0-0.0); Mean Corp Hgb Conc 33.8 g/dL (32-36); Mean Corpuscular Volume 96.4 fL (80-94); Mean Platelet Vol. 10.0 fl (6.2-12.0); NRBC Flagged by Analyzer 0 % (0-5); Platelet Count 277 K/mm3 (150-450); RBC Distribution Width CV 12.2 % (11.6-14.6); RBC Distribution Width SD 43.3 fl (35.1-43.9); Red Blood Count 4.76 M/mm3 (4.6-6.2); White Blood Count 9.0 K/mm3 (4.4-11.0)
[2025-02-28 11:42] LABS: AST(SGOT) 47 U/L (<=37); Alanine Aminotransfer ALT/SGPT 50 U/L (<=46); Albumin, Serum 4.5 g/dL (3.4-4.8); Alkaline Phosphatase 62 U/L (40-129); Anion Gap 12 (5-15); BUN 20 mg/dL (4-19); BUN/Creat Ratio 24.0 RATIO (10-20); Calcium,Total 9.7 mg/dL (7.6-11.0); Carbon Dioxide 24.9 mmol/L (21.0-32.0); Chloride 102 mmol/L (98-108); Cholesterol 165 mg/dL (<=200); Globulin 3.1 g/dL (2.2-4.2); Glucose 96 mg/dL (70-99); Low Density Lipoprotein Calc. 96 mg/dL; PSA,Total- Diagnostic 1.68 ng/mL (0.00-4.00); Potassium 4.1 mmol/L (3.3-5.1); Triglycerides 98 mg/dL; Very Low Density Lipoprotein 20 mg/dL (5-40); cholesterol:hdl ratio screen 3.22
== END | disposition home or self-care (01) ==
LOC: MTLAB 08:00
PROVIDERS: PCP Family Medicine; Referring Provider Family Medicine; Visit Provider Family Medicine
DX: E78.00 Pure hypercholesterolemia, unspecified (principal); I10 Essential (primary) hypertension
CPT/HCPCS: 36415; 80053; 80061; 84153; 85025